=== PATIENT | female | born 1945 | race African-American/Black ===

== ENCOUNTER 2017-05-30 16:32 | Observation (INO) | payer OTHER ==
[2017-05-30] VITALS (13 sets, daily range): BP systolic 140–200; BP diastolic 67–94; PULSE 62–80; RESP 16–20; TEMP 96.7–98.4; O2SAT 95–100
[~2017-05-30] VITALS: Ht 165.1 cm; Wt 76.0 kg
[~2017-05-30 16:32] MED LIST: HYDR10TA23 PO; LATA.005%O OD; LISI-363 PO; PRAV20 PO
[2017-05-30] MEDS ORDERED: HYDR-3799 PO (17:29)
[2017-05-30] MEDS ORDERED: LATA0.002 EACH EYE (17:29)
[2017-05-30] MEDS ORDERED: CLON0.2T PO (17:29)
[2017-05-30] MEDS ORDERED: ASPI81CH7 CHEW (17:29)
[2017-05-30] MEDS ORDERED: PRAV10TA PO (17:29)
[2017-05-30] MEDS ORDERED: SODIUM CHLORIDE 0.9% FLUSH 10 ML FLUSH IVF PRN (17:45)
[2017-05-30] MEDS ORDERED: ASPIRIN 81 MG CHEW TAB PO ONE (17:45)
[2017-05-30] MEDS ORDERED: SODIUM CHLORID 0.9% 500 ML INJ 500 ML IV ONE (17:45)
--- NOTE | 2017-05-30 17:48 | PD ---
HPI Chief Complaint: Pain: Acute or Chronic Time Seen by Provider: 17:28 Travel History International Travel<30 days: No Contact w/Intl Traveler<30days: No Traveled to known affect area: No History of Present Illness HPI The patient is a 71-year-old female who presents to the emergency department for multiple complaints. The patient notes a week and a half history of left arm pain which is constant, worse when she moves her left arm, as well as worse when she is in certain positions lying in bed. She also complains of intermittent palpitations of her hard at night, feels her heart beating quickly at times, also complains of intermittent chest heaviness. She denies any shortness of breath, nausea, vomiting, or diaphoresis. The patient does have a history of hypertension and hyperlipidemia, denies any known history of coronary artery disease, tobacco use, or diabetes. She denies any recent exertional symptoms, states her pain can be present at rest in the left arm as well as the left chest. Symptoms are moderate, the left arm pain is exacerbated with movement, but still present at rest. The patient had an appointment to see her physician yesterday, however, was too tired and missed her appointment. PFSH Past Medical History Hx Anticoagulant Therapy: Yes (BABY ASA DAILY) Cardiovascular Problems: Yes (HTN, CHOL) Diabetes: No Diminished Hearing: No Hypertension: Yes Immunizations Current: Yes Tetanus Vaccination: Unknown ?: Not Menopausal: Yes Past Surgical History Gynecologic Surgery: Yes (PARTIAL HYSTERECTOMY) Social History Alcohol Use: No Tobacco Use: No Substance Use: No Allergies-Medications (Allergen,Severity, Reaction): Coded Allergies: No Known Allergies (Unverified Adverse Reaction, Unknown, 05/30/17) Reported Meds & Prescriptions Reported Meds & Active Scripts Active Reported Clonidine (Clonidine HCl) 0.2 Mg Tab 0.2 Mg PO TID Pravastatin 10 Mg Tab 10 Mg PO DAILY Latanoprost Opth Drops (Latanoprost) 0.005% Drops 1 Drop EACH EYE HS Refrigerate until opened. Hydralazine HCl 25 Mg Tablet 25 Mg PO TID Aspirin Children's (Aspirin) 81 Mg Chew 81 Mg CHEW DAILY Review of Systems Except as stated in HPI: all other systems reviewed are Neg General / Constitutional: No: Fever HENT: No: Headaches Cardiovascular: Positive: Chest Pain or Discomfort (heaviness), No: Dyspnea on exertion Respiratory: No: Shortness of Breath Gastrointestinal: No: Nausea, Vomiting, Abdominal Pain Musculoskeletal: Positive: Pain, No: Edema Neurologic: No: Paresthesia, Sensory Disturbance Physical Exam Narrative GENERAL: Awake, alert, pleasant 71-year-old female who appears her stated age and is in no acute respiratory distress. SKIN: Focused skin assessment warm/dry. HEAD: Atraumatic. Normocephalic. EYES: Pupils equal and round. No scleral icterus. No injection or drainage. ENT: No nasal bleeding or discharge. Mucous membranes pink and moist. NECK: Trachea midline. No JVD. CARDIOVASCULAR: Regular rate and rhythm. No murmur appreciated. RESPIRATORY: No accessory muscle use. Clear to auscultation. Breath sounds equal bilaterally. GASTROINTESTINAL: Abdomen soft, non-tender, nondistended. MUSCULOSKELETAL: Palpation of left shoulder reproduces the pain of the left arm over the deltoid. Positive left radial pulse. Patient's pain is elicited with abduction Or rotation of the left shoulder. NEUROLOGICAL: Awake and alert. No obvious cranial nerve deficits. Motor grossly within normal limits. Normal speech. Nonfocal. Oriented 4. PSYCHIATRIC: Appropriate mood and affect; insight and judgment normal. Data Data Last Documented VS Vital Signs Date Time Temp Pulse Resp B/P (MAP) Pulse Ox O2 Delivery O2 Flow Rate FiO2 05/30/17 18:08 62 16 166/70 (102) 100 Room Air 140/69 (92) 05/30/17 18:03 2.00 05/30/17 17:24 98.4 Orders Orders Electrocardiogram (05/30/17 17:40) Ckmb (Isoenzyme) Profile (05/30/17 17:40) Complete Blood Count With Diff (05/30/17 17:40) Comprehensive Metabolic Panel (05/30/17 17:40) Magnesium (Mg) (05/30/17 17:40) Prothrombin Time / Inr (Pt) (05/30/17 17:40) Act Partial Throm Time (Ptt) (05/30/17 17:40) Troponin I (05/30/17 17:40) Chest, Single Ap (05/30/17 17:40) Ecg Monitoring (05/30/17 17:40) Bilateral Bp Monitoring (05/30/17 17:40) Iv Access Insert/Monitor (05/30/17 17:40) Oximetry (05/30/17 17:40) Oxygen Administration (05/30/17 17:40) Aspirin Chew (Aspirin Chew) (05/30/17 17:45) Sodium Chloride 0.9% Flush (Ns Flush) (05/30/17 17:45) Sodium Chlorid 0.9% 500 Ml Inj (Ns 500 M (05/30/17 17:45) CKMB (05/30/17 18:00) CKMB% (05/30/17 18:00) Labs Laboratory Tests Test 05/30/17 18:00 White Blood Count 5.6 TH/MM3 Red Blood Count 4.42 MIL/MM3 Hemoglobin 11.5 GM/DL Hematocrit 34.8 % Mean Corpuscular Volume 78.7 FL Mean Corpuscular Hemoglobin 26.1 PG Mean Corpuscular Hemoglobin Concent 33.2 % Red Cell Distribution Width 13.2 % Platelet Count 251 TH/MM3 Mean Platelet Volume 9.3 FL Neutrophils (%) (Auto) 54.7 % Lymphocytes (%) (Auto) 33.9 % Monocytes (%) (Auto) 5.5 % Eosinophils (%) (Auto) 4.9 % Basophils (%) (Auto) 1.0 % Neutrophils # (Auto) 3.0 TH/MM3 Lymphocytes # (Auto) 1.9 TH/MM3 Monocytes # (Auto) 0.3 TH/MM3 Eosinophils # (Auto) 0.3 TH/MM3 Basophils # (Auto) 0.1 TH/MM3 CBC Comment DIFF FINAL Differential Comment Prothrombin Time 10.7 SEC Prothromb Time International Ratio 1.0 RATIO Activated Partial Thromboplast Time 23.3 SEC Blood Urea Nitrogen 28 MG/DL Creatinine 2.30 MG/DL Random Glucose 104 MG/DL Total Protein 7.6 GM/DL Albumin 3.8 GM/DL Calcium Level 8.2 MG/DL Magnesium Level 2.1 MG/DL Alkaline Phosphatase 68 U/L Aspartate Amino Transf (AST/SGOT) 17 U/L Alanine Aminotransferase (ALT/SGPT) 23 U/L Total Bilirubin 0.2 MG/DL Sodium Level 138 MEQ/L Potassium Level 5.0 MEQ/L Chloride Level 108 MEQ/L Carbon Dioxide Level 22.7 MEQ/L Anion Gap 7 MEQ/L Estimat Glomerular Filtration Rate 25 ML/MIN Total Creatine Kinase 145 U/L Troponin I LESS THAN 0.02 NG/ML MDM Medical Decision Making Medical Screen Exam Complete: Yes Emergency Medical Condition: Yes Medical Record Reviewed: Yes Interpretation(s) EKG reveals sinus bradycardia with a heart rate of 58. Nonspecific T wave changes with flattened T-wave in V6 and 1, inverted T-wave in aVL. Differential Diagnosis Differential diagnoses includes acute coronary syndrome, atypical chest pain, arrhythmia, radiculopathy, DVT, musculoskeletal pain. Narrative Course IV was established, labs are drawn and sent, and the patient was placed on cardiac telemetry monitoring and continuous pulse oximetry monitoring. EKG was ordered and interpreted. Chest x-ray was obtained. The patient was administered aspirin and IV fluids. The patient's chest x-rays unremarkable. The patient's arm pain is reproducible, however, she does have underlying chest pressure with a history of hypertension and hyperlipidemia. The patient's EKG does have nonspecific T-wave changes, troponin was negative. I had a discussion with the patient regarding 2 sets of serial cardiac enzymes and outpatient follow-up with her primary physician for a referral for outpatient stress test versus 23 hour observation in the chest pain center for serial cardiac enzymes and a stress test in the morning if deemed necessary. The patient would prefer to stay in the hospital overnight for serial cardiac enzymes and possibly a stress test. [facility]. The patient agrees and understands. Physician Communication Physician Communication [facility] to the chest pain center for serial cardiac enzymes. Diagnosis Primary Impression: Chest pain Qualified Codes: R07.9 - Chest pain, unspecified Admitting Information Admitting Physician Requests: Observation Disposition: DISCHARGE HOME Condition: Stable Zachary Arteaga MD May 30, 2017 17:48
[2017-05-30 18:11] LABS: BASOPHIL # 0.1 TH/MM3 (0-0.2); EOSINOPHIL # 0.3 TH/MM3 (0-0.4); EOSINOPHIL % 4.9 % (0.0-4.0); HEMATOCRIT 34.8 % (35.0-46.0); HEMOGLOBIN 11.5 GM/DL (11.6-15.3); LYMPH % 33.9 % (9.0-44.0); LYMPHOCYTE # 1.9 TH/MM3 (1.0-4.8); MEAN CELL VOLUME 78.7 FL (80.0-100.0); MEAN CORPUSCULAR HEMOGLOBIN 26.1 PG (27.0-34.0); MEAN CORPUSCULAR HGB CONC 33.2 % (32.0-36.0); MEAN PLATELET VOLUME 9.3 FL (7.0-11.0); MONO % 5.5 % (0.0-8.0); MONOCYTE # 0.3 TH/MM3 (0-0.9); NEUT % 54.7 % (16.0-70.0); PLATELET COUNT 251 TH/MM3 (150-450); RED BLOOD COUNT 4.42 MIL/MM3 (4.00-5.30); RED CELL DISTRIBUTION WIDTH 13.2 % (11.6-17.2); WHITE BLOOD COUNT 5.6 TH/MM3 (4.0-11.0)
--- NOTE | 2017-05-30 18:19 | RADRPT ---
EXAM DATE/TIME: 05/30/2017 18:03 [facility] COMPARISON: No previous studies available for comparison. INDICATIONS : Chest pain and heart palpitations. MEDICAL HISTORY : Venous insufficiency. Hypertension. Renal disease. SURGICAL HISTORY : Partial hysterectomy. ENCOUNTER: Initial ACUITY: 1 day PAIN SCORE: 7/10 LOCATION: Bilateral chest FINDINGS: A single view of the chest demonstrates the lungs to be symmetrically aerated without evidence of mas s, infiltrate or effusion. The cardiomediastinal contours are unremarkable. Osseous structures are intact. CONCLUSION: No acute disease. Leopoldo Bello MD on May 30, 2017 at 18:16 Board Certified Radiologist. This report was verified electronically.
[2017-05-30 18:28] LABS: CHLORIDE 108 MEQ/L (98-107); SODIUM (NA) 138 MEQ/L (136-145)
[2017-05-30 18:31] LABS: CALCIUM 8.2 MG/DL (8.5-10.1)
[2017-05-30 18:32] LABS: ALBUMIN 3.8 GM/DL (3.4-5.0); BICARBONATE 22.7 MEQ/L (21.0-32.0); BLOOD UREA NITROGEN 28 MG/DL (7-18); GLUCOSE,RANDOM 104 MG/DL (74-106); MAGNESIUM 2.1 MG/DL (1.5-2.5)
[2017-05-30 18:34] LABS: PROTHROMBIN TIME - PATIENT 10.7 SEC (9.8-11.6)
[2017-05-30 18:35] LABS: ALT (GPT) 23 U/L (10-53); AST (GOT) 17 U/L (15-37); GLOMERULAR FILTRATION RATE 25 ML/MIN (>89)
[2017-05-30 18:37] LABS: TOTAL BILIRUBIN ADULT 0.2 MG/DL (0.2-1.0); TOTAL PROTEIN 7.6 GM/DL (6.4-8.2)
[2017-05-30 18:38] LABS: ALKALINE PHOSPHATASE 68 U/L (45-117)
[2017-05-30 18:40] LABS: TROPONIN I LESS THAN 0.02 NG/ML (0.02-0.05)
[2017-05-30] MEDS ORDERED: ONDANSETRON HCL 4 MG/2 ML VIAL IV PUSH PRN (18:45)
[2017-05-30] MEDS ORDERED: ACETAMINOPHEN 500 MG CPLT PO PRN (18:45)
[2017-05-30] MEDS ORDERED: MORPHINE SULFATE 4 MG/ML INJ IV PUSH PRN (18:45)
[2017-05-30] MEDS ORDERED: NITROGLYCERIN 0.4 MG SL 25 TABS/BTL SL PRN (18:45)
[2017-05-30] MEDS ORDERED: SODIUM CHLORIDE 0.9% FLUSH 10 ML FLUSH IV FLUSH PRN (18:45)
[2017-05-30] MEDS ORDERED: ACETAMINOPHEN/HYDROcodone 325 MG/7.5 MG TAB PO PRN (18:45)
[2017-05-30] MEDS ORDERED: LATANOPROST 0.005% OPHT SOLN 2.5 ML BTL EACH EYE SCH (21:30)
[2017-05-30] MEDS ORDERED: hydrALAZINE HCL 20 MG/ML VIAL IV PUSH ONE (21:30)
[2017-05-30] MEDS ORDERED: hydrALAZINE HCL 25 MG TAB PO ONE (21:30)
[2017-05-30 21:45] LABS: TROPONIN I LESS THAN 0.02 NG/ML (0.02-0.05)
[2017-05-30] MEDS: SODIUM CHLORIDE 0.9% FLUSH 10 ML FLUSH IV FLUSH SCH (22:06)
[2017-05-31] VITALS (7 sets, daily range): BP systolic 141–190; BP diastolic 61–94; PULSE 63–77; RESP 20; TEMP 96.7–97.9; O2SAT 97–99
[2017-05-31 00:46] LABS: TROPONIN I LESS THAN 0.02 NG/ML (0.02-0.05)
[2017-05-31] MEDS ORDERED: TEMAZEPAM 7.5 MG CAP PO ONE (01:30)
[2017-05-31 06:32] LABS: AUTOMATED NEUTROPHIL # 2.9 TH/MM3 (1.8-7.7); BASOPHIL # 0.1 TH/MM3 (0-0.2); EOSINOPHIL # 0.3 TH/MM3 (0-0.4); EOSINOPHIL % 4.9 % (0.0-4.0); HEMATOCRIT 35.7 % (35.0-46.0); HEMOGLOBIN 11.8 GM/DL (11.6-15.3); LYMPH % 36.6 % (9.0-44.0); MEAN CORPUSCULAR HEMOGLOBIN 26.5 PG (27.0-34.0); MEAN CORPUSCULAR HGB CONC 33.1 % (32.0-36.0); MEAN PLATELET VOLUME 11.7 FL (7.0-11.0); MONO % 5.4 % (0.0-8.0); MONOCYTE # 0.3 TH/MM3 (0-0.9); NEUT % 52.1 % (16.0-70.0); PLATELET COUNT 154 TH/MM3 (150-450); RED BLOOD COUNT 4.46 MIL/MM3 (4.00-5.30); WHITE BLOOD COUNT 5.6 TH/MM3 (4.0-11.0)
[2017-05-31 06:41] LABS: BICARBONATE 22.1 MEQ/L (21.0-32.0); CALCIUM 8.1 MG/DL (8.5-10.1)
[2017-05-31 06:45] LABS: CREATININE 2.1 MG/DL (0.50-1.00)
[2017-05-31] MEDS: SODIUM CHLORIDE 0.9% FLUSH 10 ML FLUSH IV FLUSH SCH (08:48)
[2017-05-31] MEDS ORDERED: PRAVASTATIN SOD 10 MG TAB PO SCH (09:00)
[2017-05-31] MEDS ORDERED: ASPIRIN 325 MG TAB PO SCH (09:00)
[2017-05-31] MEDS ORDERED: ASPIRIN 81 MG CHEW TAB CHEW SCH (09:00)
[2017-05-31] MEDS ORDERED: cloNIDine HCL 0.2 MG TAB PO SCH (09:00)
[2017-05-31] MEDS ORDERED: hydrALAZINE HCL 25 MG TAB PO SCH (09:00)
--- NOTE | 2017-05-31 09:18 | HHI.HP ---
[facility] Trung Shen MD Admission Diagnosis chest pain rule out ACS Diagnoses: (1) Palpitations Diagnosis: Principal (2) Left arm pain Diagnosis: Secondary Chief Complaint: Palpitations, left shoulder pain Travel History International Travel<30 Days: No Contact w/Intl Traveler <30 Da: No Traveled to Known Affected Are: No History of Present Illness Ms. Crowder is a 71-year-old female patient with a known medical history of HTN, hyperlipidemia and chronic kidney disease who presented to the ED with complaints of palpitations and left shoulder pain. Patient states two weeks ago she noticed a pain in her left shoulder, thinking it was related to sleeping on it wrong. The pain was cramping and sore in nature, states it would come and go. The pain in the shoulder would be worse at night and with repositioning. Tylenol seemed to relieve the pain. Patient also states that she was laying in bed two nights ago and noticed her heart racing, denied any associated chest pain. Admits to associated shortness of breath and dizziness with these palpitations. Patient states that the palpitations eventually subsided and the next day she felt a heaviness in her chest which brought her to the ED for examination. Denies any recent illness including fever, chills, headache, cough , abdominal pain, nausea, vomiting, diarrhea, or dysuria. Patient follows with Dr. Zuniga, nephrology, for chronic kidney disease. At this time patient denies any chest pain, pressure or heaviness. The only complaint is continued soreness in the left arm. Denies SOB at this time. Review of Systems Constitutional: DENIES: Fatigue, Fever, Chills Respiratory: DENIES: Cough, Sputum production, Shortness of breath Cardiovascular: COMPLAINS OF: Palpitations, DENIES: Chest pain Gastrointestinal: DENIES: Abdominal pain, Black stools, Bloody stools, Diarrhea , Nausea, Vomiting Genitourinary: DENIES: Dysuria Musculoskeletal: COMPLAINS OF: Joint pain (left shoulder) Psychiatric: COMPLAINS OF: Anxiety Except as stated in HPI: all other systems reviewed are Neg Past Family Social History Past Medical History Hypertension Dyslipidemia Chronic kidney disease. Past Surgical History Hysterectomy Reported Medications Active Reported Clonidine (Clonidine HCl) 0.2 Mg Tab 0.2 Mg PO TID Pravastatin 10 Mg Tab 10 Mg PO DAILY Latanoprost Opth Drops (Latanoprost) 0.005% Drops 1 Drop EACH EYE HS Refrigerate until opened. Hydralazine HCl 25 Mg Tablet 25 Mg PO TID Aspirin Children's (Aspirin) 81 Mg Chew 81 Mg CHEW DAILY Allergies: Coded Allergies: No Known Allergies (Unverified Adverse Reaction, Unknown, 05/30/17) Active Ordered Medications Current Medications Medications (Trade) Dose Ordered Sig/Pedro Route Start Time Stop Time Status Last Admin (NS Flush) 2 ml UNSCH PRN IVF 05/30/17 17:45 (NS Flush) 2 ml BID IV FLUSH 05/30/17 21:00 05/31/17 08:48 ([place]voort 7.5-325 Mg) 1 tab Q4H PRN PO 05/30/17 18:45 05/30/17 20:49 (Morphine Inj) 2 mg Q4H PRN IV PUSH 05/30/17 18:45 (Zofran Inj) 4 mg Q6H PRN IV PUSH 05/30/17 18:45 (Nitrostat Sl) 0.4 mg Q5M PRN SL 05/30/17 18:45 (Catapres) 0.2 mg TID PO 05/31/17 09:00 05/31/17 08:47 (Apresoline) 25 mg TID PO 05/31/17 09:00 05/31/17 08:46 (Xalatan 0.005% Opth Soln) 1 drop HS EACH EYE 05/30/17 21:30 (Pravachol) 10 mg DAILY PO 05/31/17 09:00 05/31/17 08:47 (Aspirin Chew) 81 mg DAILY CHEW 06/01/17 09:00 (Tylenol) 650 mg ONCE ONCE PO 05/31/17 09:15 05/31/17 09:16 UNV (Tylenol) 650 mg Q4H PRN PO 05/31/17 09:15 UNV Family History Maternal family medical history significant for heart disease. Social History Denies any current or past tobacco use. Denies any alcohol use. Denies any illicit drug use. Physical Exam Vital Signs Vital Signs Date Time Temp Pulse Resp B/P (MAP) Pulse Ox O2 Delivery O2 Flow Rate FiO2 05/31/17 08:00 97.9 65 20 168/79 (108) 97 05/31/17 04:00 97.1 63 20 175/82 (113) 97 05/31/17 01:25 72 05/31/17 01:22 97.9 74 20 166/71 (102) 05/30/17 23:00 96.7 71 20 190/94 (126) 98 05/30/17 22:48 73 18 158/67 (97) 100 05/30/17 22:25 71 18 170/68 (102) 100 Room Air 05/30/17 22:15 80 18 174/76 (108) 100 Room Air 05/30/17 22:08 65 18 190/87 (121) 100 Room Air 05/30/17 21:49 18 05/30/17 20:36 66 18 200/73 (115) 100 Nasal Cannula 2.00 05/30/17 20:15 70 18 199/81 (120) 99 Nasal Cannula 2.00 05/30/17 19:00 18 05/30/17 19:00 63 18 191/80 (117) 99 Nasal Cannula 2.00 05/30/17 18:08 62 16 166/70 (102) 100 Room Air 140/69 (92) 05/30/17 18:03 Nasal Cannula 2.00 05/30/17 18:03 16 95 Nasal Cannula 2.00 05/30/17 17:24 98.4 70 18 163/71 (101) 98 05/30/17 16:54 98.4 70 18 163/71 (101) 98 Room Air Physical Exam GENERAL: This is a well-nourished, well-developed AA female patient, lying in bed in nad, with continued complaint of left shoulder pain. Awake and alert, oriented x 3. SKIN: No rashes, ecchymoses or lesions. Warm and dry. HEAD: Atraumatic. Normocephalic. Pupils equal round and reactive. Extraocular motions intact. No scleral icterus. No injection or drainage. Nose without bleeding. Throat without erythema, tonsillar hypertrophy or exudate. Airway patent. NECK: Trachea midline. No JVD. Supple. CARDIOVASCULAR: Regular rate and rhythm without murmurs, gallops, or rubs. No S3 or S4. No reproducible chest pain to palpation. RESPIRATORY: Clear to auscultation. Breath sounds equal bilaterally. No wheezes , rales, or rhonchi. GASTROINTESTINAL: Abdomen soft, non-tender, nondistended. No guarding. Active bs x 4q. MUSCULOSKELETAL: Extremities without clubbing, cyanosis, or edema. No joint tenderness, effusion, or edema noted. Left shoulder pain with shoulder elevation. No pain with abduction or adduction of left shoulder NEUROLOGICAL: Awake and alert. Cranial nerves II through XII intact. Motor and sensory grossly within normal limits. Five out of 5 muscle strength in all muscle groups. Normal speech. Laboratory Laboratory Tests Test 05/30/17 18:00 05/30/17 21:00 05/31/17 00:00 05/31/17 06:00 White Blood Count 5.6 5.6 Red Blood Count 4.42 4.46 Hemoglobin 11.5 11.8 Hematocrit 34.8 35.7 Mean Corpuscular Volume 78.7 80.0 Mean Corpuscular Hemoglobin 26.1 26.5 Mean Corpuscular Hemoglobin Concent 33.2 33.1 Red Cell Distribution Width 13.2 13.0 Platelet Count 251 154 Mean Platelet Volume 9.3 11.7 Neutrophils (%) (Auto) 54.7 52.1 Lymphocytes (%) (Auto) 33.9 36.6 Monocytes (%) (Auto) 5.5 5.4 Eosinophils (%) (Auto) 4.9 4.9 Basophils (%) (Auto) 1.0 1.0 Neutrophils # (Auto) 3.0 2.9 Lymphocytes # (Auto) 1.9 2.0 Monocytes # (Auto) 0.3 0.3 Eosinophils # (Auto) 0.3 0.3 Basophils # (Auto) 0.1 0.1 CBC Comment DIFF FINAL DIFF FINAL Differential Comment Prothrombin Time 10.7 Prothromb Time International Ratio 1.0 Activated Partial Thromboplast Time 23.3 Blood Urea Nitrogen 28 28 Creatinine 2.30 2.10 Random Glucose 104 94 Total Protein 7.6 Albumin 3.8 Calcium Level 8.2 8.1 Magnesium Level 2.1 Alkaline Phosphatase 68 Aspartate Amino Transf (AST/SGOT) 17 Alanine Aminotransferase (ALT/SGPT) 23 Total Bilirubin 0.2 Sodium Level 138 139 Potassium Level 5.0 4.8 Chloride Level 108 109 Carbon Dioxide Level 22.7 22.1 Anion Gap 7 8 Estimat Glomerular Filtration Rate 25 28 Total Creatine Kinase 145 138 132 Creatine Kinase MB 1.6 1.4 1.4 Troponin I LESS THAN 0.02 LESS THAN 0.02 LESS THAN 0.02 Result Diagram: 05/31/17 0600 05/31/17 0600 Imaging Last Impressions Chest X-Ray 05/30/17 1740 Signed Impressions: Service Date/Time: May 18:03 - CONCLUSION: No acute disease. MD Arabella Peck VTE Risk Assessment Arabella VTE Risk Assessment: Mod/High Risk (score >= 2) Caprini Risk Assessment Model Point Value = 1 Point Value = 2 Point Value = 3 Point Value = 5 Age 41-60 Minor surgery BMI > 25 kg/m2 Swollen legs Varicose veins or History of unexplained or recurrent spontaneous Oral contraceptives or hormone replacement Sepsis (< 1 month) Serious lung disease, including pneumonia (< 1 month) Abnormal pulmonary function Acute myocardial infarction Congestive heart failure (< 1 month) History of inflammatory bowel disease Medical patient at bed rest Age 61-74 Arthroscopic surgery Major open surgery (> 45 min) Laparoscopic surgery (> 45 min) Malignancy Confined to bed (> 72 hours) Immobilizing plaster cast Central venous access Age >= 75 History of VTE Family history of VTE Factor V Leiden Prothrombin [id number] Lupus anticoagulant Anticardiolipin antibodies Elevated serum homocysteine Heparin-induced thrombocytopenia Other congenital or acquired thrombophilia Stroke (< 1 month) Elective arthroplasty Hip, pelvis, or leg fracture Acute spinal cord injury (< 1 month) Prophylaxis Regimen Total Risk Factor Score Risk Level Prophylaxis Regimen 0-1 Low Early ambulation 2 Moderate Order ONE of the following: *Sequential Compression Device (SCD) *Heparin 5000 units SQ BID 3-4 Higher Order ONE of the following medications: *Heparin 5000 units SQ TID *Enoxaparin/Lovenox 40 mg SQ daily (WT < 150 kg, CrCl > 30 mL/min) *Enoxaparin/Lovenox 30 mg SQ daily (WT < 150 kg, CrCl > 10-29 mL/min) *Enoxaparin/Lovenox 30 mg SQ BID (WT < 150 kg, CrCl > 30 mL/min) AND/OR *Sequential Compression Device (SCD) 5 or more Highest Order ONE of the following medications: *Heparin 5000 units SQ TID (Preferred with Epidurals) *Enoxaparin/Lovenox 40 mg SQ daily (WT < 150 kg, CrCl > 30 mL/min) *Enoxaparin/Lovenox 30 mg SQ daily (WT < 150 kg, CrCl > 10-29 mL/min) *Enoxaparin/Lovenox 30 mg SQ BID (WT < 150 kg, CrCl > 30 mL/min) AND *Sequential Compression Device (SCD) Assessment and Plan Assessment and Plan Ms. Crowder is a 71-year-old female patient with a known medical history of HTN, hyperlipidemia and chronic kidney disease who presented to the ED with complaints of palpitations and left shoulder pain. Patient states two weeks ago she noticed a pain in her left shoulder, thinking it was related to sleeping on it wrong. The pain was cramping and sore in nature, states it would come and go. The pain in the shoulder would be worse at night and with repositioning. Tylenol seemed to relieve the pain. Patient also states that she was laying in bed two nights ago and noticed her heart racing, denied any associated chest pain. EKG reveals sinus bradycardia with a heart rate of 58. Atypical chest pain suspect musculoskeletal in nature - Patient admitted to the chest pain center. Serial EKGs and serial troponins ordered for ruling out purposes. Troponin trends flat. EKG reviewed showing NSR with nonspecific t wave changes in septal leads. - Will obtain a left shoulder exam all views to rule out any abnormality. Tylenol ordered for pain control. Patient with chronic kidney disease, will hold off on NSAIDs at this time. Supportive care. Gansevoort PO and Morphine IV also available PRN per pain scale. - CBC reviewed and essentially unremarkable. BMp reviewed showing chronic kidney disease, creatinine 2.1, patient states her baseline is roughly 4. Stable at this time. Avoid nephrotoxins. Encourage hydration. Heart healthy diet ordered. Cardiac stress test offered but patient deferred, wants to follow up with PCP in the outpatient setting. Will defer any further cardiac stress testing. This does not appear to be cardiac in nature after extensive discussion with patient regarding her symptoms. She has denied every having any chest pain and at this time is stable with complaints of her left shoulder pain. Will review imaging once complete and likely discharge today to encourage to follow with PCP and supportive care with recommendations of heat therapy and pain control. Hypertension, chronic: BP elevated, systolic BPs 160's-170's. Continue home Clonidine and hydralazine. Continue to monitor BP trend. Dyslipidemia, chronic: Continue home Pravastatin. Chronic kidney disease: Creatinine 2.1. Follows with Dr. Zuniga in the outpatient setting. Avoid nephrotoxins. Monitor intake and output. *Shoulder x-ray reviewed showing no acute abnormality. Patient agreeable to follow up with PCP upon discharge. All questions answered to the best of my ability. Patient is stable and agreeable to the plan. Carmen Sabillon May 31, 2017 09:18
[2017-05-31] MEDS ORDERED: ACETAMINOPHEN 325 MG TAB PO ONE (10:00)
--- NOTE | 2017-05-31 10:31 | RADRPT ---
EXAM DATE/TIME: 05/31/2017 09:47 [facility] COMPARISON: No previous studies available for comparison. INDICATIONS : Left shoulder pain with no known injury. Most pain on abduction & at night while sleeping, MEDICAL HISTORY : Hypertension. SURGICAL HISTORY : Partial hysterectomy. ENCOUNTER: Initial ACUITY: 2 weeks PAIN SCORE: 3/10 LOCATION: Left shoulder. FINDINGS: Multiple view examination of the left shoulder demonstrates no evidence of fracture or dislocation. The glenohumeral and acromioclavicular joints are maintained. There is normal range of motion betwee n internal and external rotation. Bony mineralization is normal. CONCLUSION: 1. Unremarkable radiographs of the left shoulder. Ziggy Wasserman MD on May 31, 2017 at 10:28 Board Certified Radiologist. This report was verified electronically.
[2017-05-31] MEDS ORDERED: NITR0.4S SL (10:44)
--- NOTE | 2017-05-31 10:46 | HHI.DCPOC ---
Discharge Care Plan Diagnosis: (1) Chest pain Your Health Problems Are: Anxiety Additional Problems Left shoulder pain Goals to Promote Your Health * To prevent worsening of your condition and complications * To maintain your health at the optimal level Directions to Meet Your Goals Take your medications as prescribed Follow your dietary instruction Follow activity as directed Keep your appointments as scheduled Take your immunizations and boosters as scheduled If your symptoms worsen call your PCP, if no PCP go to Urgent Care Center or Emergency Room Smoking is Dangerous to Your Health. Avoid second hand smoke Call the 24-hour hour crisis hotline for domestic abuse at Carmen Sabillon May 31, 2017 10:46
--- NOTE | 2017-05-31 10:46 | HHI.DCPOC ---
Discharge Care Plan Diagnosis: (1) Chest pain Your Health Problems Are: Anxiety Additional Problems Left shoulder pain Goals to Promote Your Health * To prevent worsening of your condition and complications * To maintain your health at the optimal level Directions to Meet Your Goals Take your medications as prescribed Follow your dietary instruction Follow activity as directed Keep your appointments as scheduled Take your immunizations and boosters as scheduled If your symptoms worsen call your PCP, if no PCP go to Urgent Care Center or Emergency Room Smoking is Dangerous to Your Health. Avoid second hand smoke Call the 24-hour hour crisis hotline for domestic abuse at Carmen Sabillon May 31, 2017 10:46
--- NOTE | 2017-05-31 10:46 | HHI.DCPOC ---
Discharge Care Plan Diagnosis: (1) Chest pain Your Health Problems Are: Anxiety Additional Problems Left shoulder pain Goals to Promote Your Health * To prevent worsening of your condition and complications * To maintain your health at the optimal level Directions to Meet Your Goals Take your medications as prescribed Follow your dietary instruction Follow activity as directed Keep your appointments as scheduled Take your immunizations and boosters as scheduled If your symptoms worsen call your PCP, if no PCP go to Urgent Care Center or Emergency Room Smoking is Dangerous to Your Health. Avoid second hand smoke Call the 24-hour hour crisis hotline for domestic abuse at Carmen Sabillon May 31, 2017 10:46
--- NOTE | 2017-05-31 12:12 | EKG ---
Date Performed: 05/30/2017 Time Performed: 17:58:10 PTAGE: 71 years EKG: SINUS BRADYCARDIA POSSIBLE LEFT ATRIAL ENLARGEMENT NONSPECIFIC T-WAVE ABNORMALITY BORDERLIN E ECG NO PREVIOUS TRACING DOCTOR: Noel Alvarado Interpretating Date/Time 05/31/2017 12:08:48
--- NOTE | 2017-05-31 12:13 | EKG ---
Date Performed: 05/30/2017 Time Performed: 21:35:27 PTAGE: 71 years EKG: Sinus rhythm WITH SINUS ARRHYTHMIA NONSPECIFIC T-WAVE ABNORMALITY BORDERLINE ECG Compared to prior tracing no sig nificant change PREVIOUS TRACING : 05/30/2017 17.58 DOCTOR: Noel Alvarado Interpretating Date/Time 05/31/2017 12:08:56
[2017-05-31] MEDS ORDERED: ACETAMINOPHEN 325 MG TAB PO PRN (14:00)
[2017-06-01] MEDS ORDERED: ASPIRIN 81 MG CHEW TAB CHEW SCH (09:00)
--- NOTE | 2017-06-02 08:54 | EKG ---
Date Performed: 05/31/2017 Time Performed: 00:16:30 PTAGE: 71 years EKG: Sinus rhythm WITH FIRST DEGREE AV BLOCK MODERATE T-WAVE ABNORMALITY, CONSIDER LATERAL ISCHEMIA Compared to prior tracing no significant change ABNORMAL ECG PREVIOUS TRACING : 05/30/17 @ 2135 DOCTOR: Chay Diaz Interpretating Date/Time 06/02/2017 08:53:40
== END 2017-05-31 12:45 | disposition home or self-care (01) ==
LOC: PHED 16:32 → PHEDA 18:48 → PH3B 22:52
PROVIDERS: ADMIT Family Medicine; ATTEND Family Medicine
DX: R07.89 Other chest pain (principal); I12.9 Hypertensive chronic kidney disease with stage 1 through stage 4 chronic kidney disease, or unspecified chronic kidney disease; N18.9 Chronic kidney disease, unspecified; E78.5 Hyperlipidemia, unspecified; F41.9 Anxiety disorder, unspecified; R94.31 Abnormal electrocardiogram [ECG] [EKG]; Z90.710 Acquired absence of both cervix and uterus
CPT/HCPCS: 71010; 73030; 80048; 80053; 82550; 82552; 83735; 84484; 85025; 85610; 85730; 93005; 96361; 96374; 99285; G0378; J0360; J7040